=== PATIENT | male | born 1935 | race Native Hawaiian/Other Pacific Islander ===

== ENCOUNTER 2017-09-10 13:09 | Inpatient (IN) | payer MEDICARE, OTHER ==
[2017-09-10 13:09] VITALS: BMI 18.5
--- NOTE | 2017-09-10 13:36 | ED PDOC ---
HPI: Abdomen Time Seen by Provider: 09/10/17 13:35 Chief Complaint (Nursing): Abdominal Pain Chief Complaint (Provider): abd pain History Per: Patient Additional Complaint(s): 82-year-old male presents to emergency department with diffuse abdominal pain and vomiting that started yesterday. No fever or chills, no diarrhea, no chest pain, shortness of breath or dyspnea on exertion. PMD: Dr. Giang Past Medical History Reviewed: Historical Data, Nursing Documentation, Vital Signs Vital Signs: Last Vital Signs Temp 98.3 F 09/10/17 13:14 Pulse 83 09/10/17 13:14 Resp 16 09/10/17 13:14 BP 117/63 09/10/17 13:14 Pulse Ox 97 09/10/17 15:44 - Medical History PMH: HTN, Hypercholesterolemia, Osteoporosis - Surgical History Surgical History: Cholecystectomy, Endoscopy - Family History Family History: States: No Known Family Hx - Living Arrangements Living Arrangements: With Family - Social History Current smoker - smoking cessation education provided: No Alcohol: None Drugs: Denies - Home Medications Home Medications: Ambulatory Orders Medication Instructions Recorded Alendronate [Fosamax] 70 mg PO QWK 07/17/17 Finasteride [Proscar] 5 mg PO DAILY 07/17/17 Losartan Potassium 25 mg PO DAILY 07/17/17 Omeprazole 40 mg PO DAILY 07/17/17 Tamsulosin [Flomax] 0.4 mg PO HS 07/17/17 Ergocalciferol (Vitamin D2) 50,000 unit PO QWK 09/10/17 [Vitamin D2] Folic Acid [Folic Acid] 1 mg PO DAILY 09/10/17 Ranitidine HCl [Zantac] 150 mg PO BID 09/10/17 Sertraline [Zoloft] 100 mg PO DAILY 09/10/17 Simvastatin [Zocor] 20 mg PO HS 09/10/17 - Allergies Allergies/Adverse Reactions: Allergies Allergy/AdvReac Type Severity Reaction Status Date / Time No Known Allergies Allergy Verified 09/10/17 13:14 Review of Systems ROS Statement: Except As Marked, All Systems Reviewed And Found Negative Constitutional: Negative for: Fever, Chills Cardiovascular: Negative for: Chest Pain, Palpitations Respiratory: Negative for: Cough, Shortness of Breath Gastrointestinal: Positive for: Nausea, Vomiting, Abdominal Pain. Negative for : Diarrhea, Constipation Genitourinary Male: Negative for: Dysuria Physical Exam - Reviewed Nursing Documentation Reviewed: Yes Vital Signs Reviewed: Yes - Physical Exam Appears: Positive for: Well, Non-toxic, No Acute Distress Skin: Negative for: Rash Eye Exam: Positive for: Normal appearance Cardiovascular/Chest: Positive for: Regular Rate, Rhythm Respiratory: Positive for: Normal Breath Sounds. Negative for: Wheezing, Respiratory Distress Gastrointestinal/Abdominal: Positive for: Other (Diffuse tenderness in all 4 quadrants, no distention, no rebound or guarding, normoactive bowel sounds in all 4 quadrants) Back: Negative for: L CVA Tenderness, R CVA Tenderness Extremity: Positive for: Normal ROM Neurologic/Psych: Positive for: Alert, Oriented - Laboratory Results Result Diagrams: 09/10/17 14:40 09/10/17 14:40 - ECG Interpretation Of ECG: Sinus tach 101, 1st degree AV block, LBBB - no old EKG available for comparison , family confirms history of LBBB. O2 Sat by Pulse Oximetry: 97 Pulse Ox Interpretation: Normal - Other Rad CXR X-Ray: Interpreted by Me, Viewed By Me X-Ray Interpretation: no acute finding, no interval change CT abd and pelvis with IV contrast X-Ray: Read By Radiologist X-Ray Interpretation: see below Medical Decision Making Medical Decision Makin-year-old with vomiting and abdominal pain Plan: EKG CXR CT abd and pelvis with IV contrast CBC CMP Lipase Trop Urine dip CT: FINDINGS: LOWER THORAX: Nodular opacity seen in the posterior lower lung zones with apparent underlying paraseptal emphysematous changes and/or honeycombing/ fibrosis and possibly some areas of bronchiectasis. Underlying centrilobular/panlobular and bullous emphysematous changes are present. The calcified granuloma left posterior sulcus. There is a small hiatal hernia. Heart size is enlarged. No significant pericardial effusion. LIVER: Liver exhibits normal size measuring nearly 15 cm in CC dimension. Mild diffuse fatty hepatic infiltration.. Mild to moderate intrahepatic biliary ductal dilatation. Portal and splenic veins are opacified. No obvious hepatic mass or collection. GALLBLADDER AND BILE DUCTS: Gallbladder is markedly distended. There is dilatation of the common bile duct. Duodenal diverticulum is present at the level of the ampulla of Vater. Questionable wall thickening of the duodenum. Consider followup ERCP if further evaluation is required. PANCREAS : Pancreatic duct is again seen to be dilated/ectatic. No obvious pancreatic mass or collection. SPLEEN: Spleen exhibits normal size and attenuation pattern without mass collection or calcification. ADRENALS: There are no adrenal lesions seen. KIDNEYS AND URETERS: Kidneys demonstrate symmetric nephrograms. No evidence of nephrolithiasis or hydronephrosis. Multiple varying sized low predominately small low-attenuation foci seen both kidneys. Most of these foci too small to characterize however the largest focus in the mid anterolateral aspect midpole left kidney exhibits Hounsfield units in the mid 30s not compatible with a simple cyst. This could represent a hyperdense cyst however other pathology not excluded. VASCULATURE: Unremarkable. No aortic aneurysm. Abdominal aorta and iliac arteries demonstrate mild atherosclerotic plaque. BOWEL: Evaluation of the bowel is somewhat limited due to the lack of oral contrast material. Stomach is under distended and therefore difficult to evaluate. Wall thickening likely due to underdistention. Gastritis not excluded. The remaining visualized loops of small bowel otherwise exhibit normal contour and caliber. No evidence acute mechanical small bowel obstruction. Diverticula diverticulosis of. No definitive radiographic evidence of acute diverticulitis. APPENDIX: Appendix is not seen with certainty on this study. No obvious periappendiceal inflammatory changes however clinical correlation recommended with physical exam and history as the possibility of an early acute appendicitis cannot be ruled out on this exam. PERITONEUM: Unremarkable. No free fluid. No free air. LYMPH NODES: Few small nonspecific mesenteric lymph nodes are seen in right mid and lower abdomen. BLADDER: Urinary bladder is incompletely distended which presumably accounts for slight thick-walled appearance. Possibility of a cystitis not excluded. REPRODUCTIVE: Enlarged heterogeneous prostate gland measuring approximately 4.3 cm in transverse dimension. BONES: Minor multilevel degenerative spondylosis of the lumbar spine. No evidence of acute compression fractures no retropulsed fragments. OTHER FINDINGS: None. IMPRESSION: There is marked dilatation of the gallbladder however no obvious intraluminal gallbladder calculi. . Dilatation of the common bile duct and intrahepatic biliary ductal dilatation with no definitive evidence of choledocholithiasis. . There is also dilated ectatic appearing pancreatic duct. . There is a periampullary duodenal diverticulum with questionable wall thickening. Consider followup ERCP the mild fatty hepatic infiltration. Appendix is not seen with any certainty on this exam. Clinical correlation recommended. Diverticulosis without definitive radiographic evidence of acute diverticulitis. Centrilobular, panlobular and paraseptal emphysematous changes with apparent on bibasilar honeycombing/ fibrosis. See above discussion for additional details and findings. PMD is Dr. Giang, case was d/w with him and he states to admit patient to hospitalist service. Dr. Nunez to admit patient. Dr. Nunez to speak with GI for consult. Patient and family members are aware of admission and agree. Initial doses of IV cipro and flagyl were ordered. Disposition - Clinical Impression Clinical Impression: Acalculous cholecystitis, Pancreatitis - Patient ED Disposition Is Patient to be Admitted: Yes - Disposition Disposition Time: 18:02 Condition: FAIR Forms: [employer] (Faroese) - Pt Status Changed To: Hospital Disposition Of: Inpatient - Admit Certification Admit to Inpatient:: After my assessment, the patient will require hospitalization for at least two midnights. This is because of the severity of symptoms shown, intensity of services needed, and/or the medical risk in this patient being treated as an outpatient. Results - Lab Results Lab Results: 09/10/17 09/10/17 14:40 14:40 WBC 12.6 H RBC 4.87 Hgb 14.6 Hct 43.5 MCV 89.2 MCH 29.9 MCHC 33.5 RDW 14.1 Plt Count 256 MPV 7.6 Neut % (Auto) 91.1 H Lymph % (Auto) 4.2 L Letcher % (Auto) 4.4 Eos % (Auto) 0.2 Baso % (Auto) 0.1 Neut # (Auto) 11.5 H Lymph # (Auto) 0.5 L Letcher # (Auto) 0.6 Eos # (Auto) 0.0 Baso # (Auto) 0.0 Neutrophils % (Manual) 91 H Band Neutrophils % 2 Lymphocytes % (Manual) 4 L Monocytes % (Manual) 3 Platelet Estimate Normal RBC Morphology Normal Sodium 142 Potassium 4.5 Chloride 103 Carbon Dioxide 22 Anion Gap 22 H BUN 17 Creatinine 1.0 Est GFR ( Amer) > 60 Est GFR (Non-Af Amer) > 60 Random Glucose 117 H Calcium 9.4 Total Bilirubin 3.0 H AST 32 ALT 26 Alkaline Phosphatase 107 Troponin I < 0.0120 Total Protein 7.7 Albumin 4.2 Globulin 3.5 Albumin/Globulin Ratio 1.2 Lipase 5781 H
[2017-09-10] MEDS ORDERED: Sodium Chloride 0.9% 1,000 ML IV STA (14:21)
[2017-09-10 14:47] LABS: BASO % 0.1 % (0.0-2.0); EOS % 0.2 % (0.0-4.0); HEMOGLOBIN 14.6 g/dL (12.0-18.0); LYMPH # 0.5 K/uL (1.0-4.3); LYMPH % 4.2 % (20.0-40.0); MEAN CELL VOLUME 89.2 fl (80.0-94.0); MEAN CORPUSCULAR HEMOGLOBIN 29.9 pg (27.0-31.0); MEAN CORPUSCULAR HGB CONC 33.5 g/dL (33.0-37.0); MEAN PLATELET VOLUME 7.6 fl (7.2-11.7); MONO # 0.6 K/uL (0.0-0.8); MONO % 4.4 % (0.0-10.0); NEUT # 11.5 K/uL (1.8-7.0); NEUT % 91.1 % (50.0-75.0); PLATELET COUNT 256 K/uL (130-400); RBC 4.87 Mil/uL (4.40-5.90); RED CELL DISTRIBUTION WIDTH 14.1 % (11.5-14.5); WHITE BLOOD COUNT 12.6 K/uL (4.8-10.8)
[2017-09-10 14:57] LABS: ALB/GLOB RATIO 1.2 (1.0-2.1); ALBUMIN 4.2 g/dL (3.5-5.0); ALT/SGPT 26 U/L (21-72); AST/SGOT 32 U/L (17-59); BLOOD UREA NITROGEN 17 mg/dl (9-20); CALCIUM 9.4 mg/dL (8.4-10.2); GFR AFRICAN-AMERICAN > 60; GFR NON-AFRICAN AMERICAN > 60
[2017-09-10 15:23] LABS: BANDS 2 % (0-2); LYMPHOCYTE 4 % (20-50); MONOCYTE 3 % (0-10); NEUTROPHIL 91 % (42-75); PLATELET ESTIMATE NORMAL (NORMAL); TOTAL CELLS COUNTED 100
[2017-09-10 15:35] LABS: LIPASE 5781 U/L (23-300)
--- NOTE | 2017-09-10 15:49 | RAD ---
HISTORY: clearance COMPARISON: Comparison made with chest radiograph 01/02/2014. Comparison also made with CT scan chest dated 01/18/2011. FINDINGS: LUNGS: Lung ewing remain hyperinflated with flattened diaphragms consistent with centrilobular -panlobular and bullous emphysematous changes. Bibasilar atelectasis and or scarring changes. PLEURA: No significant pleural effusion identified, no pneumothorax apparent. CARDIOVASCULAR: Normal. OSSEOUS STRUCTURES: No significant abnormalities. VISUALIZED UPPER ABDOMEN: Normal. OTHER FINDINGS: None. IMPRESSION: Lung ewing remain hyperinflated with flattened diaphragms consistent with centrilobular -panlobular and bullous emphysematous changes. Bibasilar atelectasis and or scarring changes.
[2017-09-10] MEDS ORDERED: Sodium Chloride 0.9% 100 ML ONE (15:53)
[2017-09-10] MEDS ORDERED: Iohexol 300 100 ML IJ ONE (15:53)
--- NOTE | 2017-09-10 17:24 | CT ---
PROCEDURE: CT scan abdomen and pelvis dated 09/10/2017 CT Abdomen and Pelvis with contrast HISTORY: Abdominal pain, vomiting COMPARISON: Correlation made with prior MRI of the abdomen -MRCP dated 01/04/2014. . . TECHNIQUE: Contrast dose: 90 cc Omnipaque 300 Radiation dose: Total exam DLP = 260.18 mGy-cm. This CT exam was performed using one or more of the following dose reduction techniques: Automated exposure control, adjustment of the mA and/or kV according to patient size, and/or use of iterative reconstruction technique. FINDINGS: LOWER THORAX: Nodular opacity seen in the posterior lower lung zones with apparent underlying paraseptal emphysematous changes and/or honeycombing/ fibrosis and possibly some areas of bronchiectasis. Underlying centrilobular/panlobular and bullous emphysematous changes are present. The calcified granuloma left posterior sulcus. There is a small hiatal hernia. Heart size is enlarged. No significant pericardial effusion. LIVER: Liver exhibits normal size measuring nearly 15 cm in CC dimension. Mild diffuse fatty hepatic infiltration.. Mild to moderate intrahepatic biliary ductal dilatation. Portal and splenic veins are opacified. No obvious hepatic mass or collection. GALLBLADDER AND BILE DUCTS: Gallbladder is markedly distended. There is dilatation of the common bile duct. Duodenal diverticulum is present at the level of the ampulla of Vater. Questionable wall thickening of the duodenum. Consider followup ERCP if further evaluation is required. PANCREAS: Pancreatic duct is again seen to be dilated/ectatic. No obvious pancreatic mass or collection. SPLEEN: Spleen exhibits normal size and attenuation pattern without mass collection or calcification. . ADRENALS: There are no adrenal lesions seen. KIDNEYS AND URETERS: Kidneys demonstrate symmetric nephrograms. No evidence of nephrolithiasis or hydronephrosis. Multiple varying sized low predominately small low-attenuation foci seen both kidneys. Most of these foci too small to characterize however the largest focus in the mid anterolateral aspect midpole left kidney exhibits Hounsfield units in the mid 30s not compatible with a simple cyst. This could represent a hyperdense cyst however other pathology not excluded. . VASCULATURE: Unremarkable. No aortic aneurysm. Abdominal aorta and iliac arteries demonstrate mild atherosclerotic plaque. BOWEL: Evaluation of the bowel is somewhat limited due to the lack of oral contrast material. Stomach is under distended and therefore difficult to evaluate. Wall thickening likely due to underdistention. Gastritis not excluded. The remaining visualized loops of small bowel otherwise exhibit normal contour and caliber. No evidence acute mechanical small bowel obstruction. Diverticula diverticulosis of. No definitive radiographic evidence of acute diverticulitis. APPENDIX: Appendix is not seen with certainty on this study. No obvious periappendiceal inflammatory changes however clinical correlation recommended with physical exam and history as the possibility of an early acute appendicitis cannot be ruled out on this exam. PERITONEUM: Unremarkable. No free fluid. No free air. LYMPH NODES: Few small nonspecific mesenteric lymph nodes are seen in right mid and lower abdomen. BLADDER: Urinary bladder is incompletely distended which presumably accounts for slight thick-walled appearance. Possibility of a cystitis not excluded. REPRODUCTIVE: Enlarged heterogeneous prostate gland measuring approximately 4.3 cm in transverse dimension. BONES: Minor multilevel degenerative spondylosis of the lumbar spine. No evidence of acute compression fractures no retropulsed fragments. OTHER FINDINGS: None. IMPRESSION: There is marked dilatation of the gallbladder however no obvious intraluminal gallbladder calculi. . Dilatation of the common bile duct and intrahepatic biliary ductal dilatation with no definitive evidence of choledocholithiasis. . There is also dilated ectatic appearing pancreatic duct. . There is a periampullary duodenal diverticulum with questionable wall thickening. Consider followup ERCP the mild fatty hepatic infiltration. Appendix is not seen with any certainty on this exam. Clinical correlation recommended. Diverticulosis without definitive radiographic evidence of acute diverticulitis. Centrilobular, panlobular and paraseptal emphysematous changes with apparent on bibasilar honeycombing/ fibrosis. See above discussion for additional details and findings.
[2017-09-10] MEDS ORDERED: Ciprofloxacin 400mg/200ml D5W 400 MG/200 ML BAG IVPB STA (18:18)
[2017-09-10] MEDS ORDERED: metroNIDAZOLE 500mg/100ml NS 100 ML IVPB STA (18:18)
[2017-09-10] MEDS ORDERED: Morphine 4 MG/ML VIAL IVP PRN (18:38)
--- NOTE | 2017-09-10 18:59 | CP.PCM.HP ---
History of Present Illness - History of Present Illness History of Present Illness: 82 yo male with history of BPH and Gastric Ulcer with partial gastrectomy 30 yrs ago presented with upper abdominal pain since 2 days not associated with nausea or vomiting. Pain was persistent and non-radiating. Denied fever or chills but noted to be febrile while in the ER. Denied chest pain or SOB. Present on Admission - Present on Admission Any Indicators Present on Admission: No History of DVT/PE: No History of Uncontrolled Diabetes: No Urinary Catheter: No Decubitus Ulcer Present: No Review of Systems - Review of Systems All systems: reviewed and no additional remarkable complaints except (aside from those mentioned above, 14 point system review were negative by me) Past Patient History - Tetanus Immunizations Tetanus Immunization: Unknown - Past Medical History & Family History Past Medical History?: Yes - Past Social History Smoking Status: Former Smoker Alcohol: None Drugs: Denies Home Situation {Lives}: With Family - CARDIAC Hx Hypercholesterolemia: Yes Hx Hypertension: Yes - PULMONARY Hx Respiratory Disorders: No - NEUROLOGICAL Hx Neurological Disorder: No - HEENT Hx HEENT Problems: Yes - RENAL Hx Chronic Kidney Disease: No - ENDOCRINE/METABOLIC Hx Endocrine Disorders: No - HEMATOLOGICAL/ONCOLOGICAL Hx Blood Disorders: No - INTEGUMENTARY Hx Dermatological Problems: No - MUSCULOSKELETAL/RHEUMATOLOGICAL Hx Osteoporosis: Yes - GASTROINTESTINAL Hx Gastrointestinal Disorders: Yes Hx Gastroesophageal Reflux: Yes Hx Ulcer: Yes (gastric ulcer 30 yrs ago) - GENITOURINARY/GYNECOLOGICAL Hx Genitourinary Disorders: Yes Hx Prostate Problems: Yes (ENLARGED) - PSYCHIATRIC Hx Psychophysiologic Disorder: No Hx Substance Use: No - SURGICAL HISTORY Hx Cholecystectomy: Yes Other/Comment: partial gastrectomy 30 yrs ago secondary to gastric ulcer - ANESTHESIA Hx Anesthesia: Yes Hx Anesthesia Reactions: No Meds Allergies/Adverse Reactions: Allergies Allergy/AdvReac Type Severity Reaction Status Date / Time No Known Allergies Allergy Verified 09/10/17 13:14 Physical Exam - Constitutional Appears: No Acute Distress - Head Exam Head Exam: ATRAUMATIC - Eye Exam Eye Exam: absent: Scleral icterus - ENT Exam ENT Exam: Mucous Membranes Moist - Neck Exam Neck exam: Negative for: Meningismus - Respiratory Exam Respiratory Exam: absent: Rhonchi, Wheezes, Respiratory Distress - Cardiovascular Exam Cardiovascular Exam: REGULAR RHYTHM, +S1, +S2 - GI/Abdominal Exam GI & Abdominal Exam: Soft. absent: Tenderness - Rectal Exam Rectal Exam: Deferred - Extremities Exam Extremities exam: Negative for: calf tenderness, pedal edema - Back Exam Back exam: absent: tenderness - Neurological Exam Neurological exam: Alert, Oriented x3 - Psychiatric Exam Psychiatric exam: Normal Affect - Skin Skin Exam: Dry, Intact Results - Vital Signs Recent Vital Signs: Last Vital Signs Temp 100.4 F H 09/10/17 18:48 Pulse 98 H 09/10/17 18:48 Resp 18 09/10/17 18:48 BP 123/53 L 09/10/17 18:48 Pulse Ox 97 09/10/17 18:53 - Labs Result Diagrams: 09/10/17 14:40 09/10/17 14:40 Labs: Laboratory Results - last 24 hr 09/10/17 09/10/17 14:40 14:40 WBC 12.6 H RBC 4.87 Hgb 14.6 Hct 43.5 MCV 89.2 MCH 29.9 MCHC 33.5 RDW 14.1 Plt Count 256 MPV 7.6 Neut % (Auto) 91.1 H Lymph % (Auto) 4.2 L Evangeline % (Auto) 4.4 Eos % (Auto) 0.2 Baso % (Auto) 0.1 Neut # (Auto) 11.5 H Lymph # (Auto) 0.5 L Evangeline # (Auto) 0.6 Eos # (Auto) 0.0 Baso # (Auto) 0.0 Neutrophils % (Manual) 91 H Band Neutrophils % 2 Lymphocytes % (Manual) 4 L Monocytes % (Manual) 3 Platelet Estimate Normal RBC Morphology Normal Sodium 142 Potassium 4.5 Chloride 103 Carbon Dioxide 22 Anion Gap 22 H BUN 17 Creatinine 1.0 Est GFR ( Amer) > 60 Est GFR (Non-Af Amer) > 60 Random Glucose 117 H Calcium 9.4 Total Bilirubin 3.0 H AST 32 ALT 26 Alkaline Phosphatase 107 Troponin I < 0.0120 Total Protein 7.7 Albumin 4.2 Globulin 3.5 Albumin/Globulin Ratio 1.2 Lipase 5781 H Assessment & Plan (1) Acalculous cholecystitis Status: Acute Comment: ERCP. GI consult with Dr Mayfield. blood culture x 2. continue Cipro and Flagyl. Morphine 2mg IV q 6 hrs prn for pain (2) HTN (hypertension) Status: Chronic Comment: BP stable. PO meds on hold (3) BPH (benign prostatic hyperplasia) Status: Chronic Comment: stable
[2017-09-10 19:12] LABS: SQUAMOUS EPITHIAL 2 /hpf (0-5); URINE AMORPHOUS SEDIMENT RARE /ul (<OCC); URINE BILIRUBIN NEGATIVE (NEGATIVE); URINE BLOOD SMALL (NEGATIVE); URINE CLARITY CLOUDY (Clear); URINE COLOR AMBER (YELLOW); URINE GLUCOSE (UA) NEG (Normal); URINE LEUKOCYTE ESTERASE NEG Leu/uL (Negative); URINE NITRATE NEGATIVE (NEGATIVE); URINE PROTEIN 100 mg/dL (NEGATIVE)
[2017-09-10] MEDS: Lactated Ringer's 1,000 ML IV SCH (19:25)
[2017-09-10] MEDS: Piperacillin/Tazobact 3.375 GM in Sodium Chloride 0.9% 100 ML IVPB SCH (23:10)
[2017-09-11] MEDS: metroNIDAZOLE 500mg/100ml NS 100 ML IVPB SCH ×3 (00:56→16:49)
[2017-09-11] MEDS: Piperacillin/Tazobact 3.375 GM in Sodium Chloride 0.9% 100 ML IVPB SCH ×4 (04:27→21:47)
--- NOTE | 2017-09-11 06:37 | PQF GENQUE ---
This form is a permanent part of the medical record 09/11/17 Dr. Nunez, Cholecystitis and Pancreatitis is documented in the Medical Record. Please specify the acuity of these conditions. Admitted with abdominal pain , nausea and vomiting. ER: Acalculous Cholecystitis, Pancreatitis. H&P: Acalculous Cholecystitis CT: Marked dilatation of the gallbladder, CBD, intrahepatic biliary ductal dilatation and dilated ectatic pancreatic duct. Lipase 5781, WBC 12.6 L shift, Temp 100.4 Treated with IVF and IVAB. Clarification of your documentation is requested to better reflect the severity of illness and intensity of treatment of your patient. Indicators present PHYSICIAN'S RESPONSE [x] Acute [] Chronic [] Acute and chronic [] Acute on chronic [] Other (please specify in the medical record) [] Clinically unable to further specify [] Unknown Based on your medical judgment of the clinical indicators outlined above please clarify the following: [x] Practitioner response [] If unable to determine, please check the box, sign and date. Present On Admission (POA) Indicator: [x] Present at the time of admission [] Not present at the time of admission [] Clinically Undetermined In responding to this query, please exercise your independent professional judgment. The fact that a question is asked does not imply that any particular answer is desired or expected. Thank you for your clarification on this documentation. If you have any questions please call:ext [phone] * Thank you, Sherly Bales RN [facility]
[2017-09-11] MEDS: Lactated Ringer's 1,000 ML IV SCH ×3 (06:38→16:50)
[2017-09-11 06:54] LABS: BASO % 0.3 % (0.0-2.0); EOS % 0.1 % (0.0-4.0); HEMOGLOBIN 12.1 g/dL (12.0-18.0); LYMPH # 0.3 K/uL (1.0-4.3); LYMPH % 2.6 % (20.0-40.0); MEAN CELL VOLUME 87.8 fl (80.0-94.0); MEAN CORPUSCULAR HEMOGLOBIN 30.1 pg (27.0-31.0); MEAN CORPUSCULAR HGB CONC 34.3 g/dL (33.0-37.0); MEAN PLATELET VOLUME 7.7 fl (7.2-11.7); MONO # 0.7 K/uL (0.0-0.8); MONO % 6.1 % (0.0-10.0); NEUT # 10.1 K/uL (1.8-7.0); NEUT % 90.9 % (50.0-75.0); PLATELET COUNT 166 K/uL (130-400); RBC 4.03 Mil/uL (4.40-5.90); RED CELL DISTRIBUTION WIDTH 13.7 % (11.5-14.5); WHITE BLOOD COUNT 11.1 K/uL (4.8-10.8)
[2017-09-11 06:58] LABS: BLOOD UREA NITROGEN 18 mg/dl (9-20); GFR AFRICAN-AMERICAN > 60; GFR NON-AFRICAN AMERICAN > 60
[2017-09-11 07:14] LABS: CALCIUM 7.8 mg/dL (8.4-10.2)
[2017-09-11] MEDS: Enoxaparin 40 mg Syringe SC SCH (08:32)
[2017-09-11 09:40] LABS: BANDS 2 % (0-2); BASOPHIL 1 % (0-2); EOSINOPHIL 1 % (0-7); LYMPHOCYTE 5 % (20-50); MONOCYTE 8 % (0-10); NEUTROPHIL 83 % (42-75); TOTAL CELLS COUNTED 100
[2017-09-11 09:41] LABS: PLATELET ESTIMATE NORMAL (NORMAL); TOXIC GRANULATION PRESENT
--- NOTE | 2017-09-11 11:50 | CARD ---
APPROVED REPORT EKG Measurement Heart [id number] <Conclusion> Sinus tachycardia with 1st degree AV block Left axis deviation Left bundle branch block Abnormal ECG
--- NOTE | 2017-09-11 16:30 | CP.PCM.PN ---
Subjective - Date & Time of Evaluation Date of Evaluation: 09/11/17 Time of Evaluation: 16:00 - Subjective Subjective: Patient seen and examined. Complaining of hunger but abdominal pain had gone Objective - Vital Signs/Intake and Output Vital Signs (last 24 hours): Temp Pulse Resp BP Pulse Ox 101.7 F H 77 20 129/58 L 95 09/11/17 16:08 09/11/17 16:08 09/11/17 16:08 09/11/17 16:08 09/11/17 16:08 - Medications Medications: Current Medications Acetaminophen (Tylenol 650 Mg Supp) [address] Q6 PRN PRN Reason: Fever >100.4 F Last Admin: 09/11/17 15:41 Dose: 650 mg Enoxaparin Sodium (Lovenox) 40 mg SC DAILY SARATH PRN Reason: Protocol Last Admin: 09/11/17 08:32 Dose: 40 mg Lactated Ringer's (Lactated Ringer's) 1,000 mls @ 100 mls/hr IV .Q10H [facility] Last Admin: 09/11/17 09:35 Dose: 100 mls/hr Piperacillin Sod/Tazobactam (Sod 3.375 gm/ Sodium Chloride) 100 mls @ 100 mls/ hr IVPB Q6 SARATH PRN Reason: Protocol Last Admin: 09/11/17 09:35 Dose: 100 mls/hr Metronidazole (Flagyl 500mg/100ml Ns) 100 mls @ 100 mls/hr IVPB Q8 SARATH PRN Reason: Protocol Last Admin: 09/11/17 08:31 Dose: 100 mls/hr Potassium Chloride 10 meq/ (Sodium Chloride) 105 mls @ 105 mls/hr IV Q1 [facility] Stop: 09/11/17 18:59 Morphine Sulfate (Morphine) 2 mg IVP Q6 PRN PRN Reason: Pain, moderate (4-7) - Labs Labs: 09/11/17 06:10 09/11/17 06:10 - Constitutional Appears: No Acute Distress - Head Exam Head Exam: ATRAUMATIC - Eye Exam Eye Exam: absent: Scleral icterus - ENT Exam ENT Exam: Mucous Membranes Moist - Neck Exam Neck Exam: absent: Meningismus - Respiratory Exam Respiratory Exam: absent: Rhonchi, Wheezes, Respiratory Distress - Cardiovascular Exam Cardiovascular Exam: REGULAR RHYTHM, +S1, +S2 - GI/Abdominal Exam GI & Abdominal Exam: Soft. absent: Tenderness - Rectal Exam Rectal Exam: Deferred - Extremities Exam Extremities Exam: absent: Calf Tenderness, Pedal Edema - Back Exam Back Exam: absent: tenderness - Neurological Exam Neurological Exam: Alert, Oriented x3 - Psychiatric Exam Psychiatric exam: Normal Affect - Skin Skin Exam: Dry, Intact Assessment and Plan - Assessment and Plan (Free Text) Assessment: 82 yo male with history of BPH and Gastric Ulcer with partial gastrectomy 30 yrs ago presented with persistent non-radiating upper abdominal pain for 2 days. 1. Pancreatitis pain was resolved but now complained of hunger since placed on NPO Lipase went down from [address] scan of abdomen: dilated gallbladder, CBD and intrahepatic biliary duct; dilated pancreatic duct with periampullary duodenal diverticulum with wall thickening for MRCP tomorrow since it is less invasive compared to ERCP continue Zosyn and Flagyl follow up blood culture continue to have daily fever repeat CMP and CBC in am 2. HTN BP stable without medication 3. BPH stable
[2017-09-11 18:41] LABS: ALB/GLOB RATIO 0.9 (1.0-2.1); ALBUMIN 2.6 g/dL (3.5-5.0); BILIRUBIN,DIRECT 5.1 mg/ml (0.0-0.4)
[2017-09-12] MEDS: metroNIDAZOLE 500mg/100ml NS 100 ML IVPB SCH ×3 (00:22→16:14)
[2017-09-12] MEDS: Lactated Ringer's 1,000 ML IV SCH ×4 (03:49→21:15)
[2017-09-12] MEDS: Piperacillin/Tazobact 3.375 GM in Sodium Chloride 0.9% 100 ML IVPB SCH ×4 (03:49→21:18)
[2017-09-12 06:31] LABS: BASO % 0.5 % (0.0-2.0); EOS # 0.1 K/uL (0.0-0.7); EOS % 1.4 % (0.0-4.0); HEMOGLOBIN 12.7 g/dL (12.0-18.0); LYMPH # 0.4 K/uL (1.0-4.3); LYMPH % 6.7 % (20.0-40.0); MEAN CELL VOLUME 89.4 fl (80.0-94.0); MEAN CORPUSCULAR HEMOGLOBIN 29.7 pg (27.0-31.0); MEAN CORPUSCULAR HGB CONC 33.2 g/dL (33.0-37.0); MEAN PLATELET VOLUME 7.6 fl (7.2-11.7); MONO # 0.4 K/uL (0.0-0.8); MONO % 7.8 % (0.0-10.0); NEUT # 4.7 K/uL (1.8-7.0); NEUT % 83.6 % (50.0-75.0); NRBC % 0.1 % (0.0-0.0); RBC 4.27 Mil/uL (4.40-5.90); RED CELL DISTRIBUTION WIDTH 13.9 % (11.5-14.5); WHITE BLOOD COUNT 5.7 K/uL (4.8-10.8)
[2017-09-12 06:45] LABS: ALB/GLOB RATIO 0.9 (1.0-2.1); ALBUMIN 2.8 g/dL (3.5-5.0); ALT/SGPT 128 U/L (21-72); AST/SGOT 93 U/L (17-59); BLOOD UREA NITROGEN 15 mg/dl (9-20); CALCIUM 7.9 mg/dL (8.4-10.2); GFR AFRICAN-AMERICAN > 60; GFR NON-AFRICAN AMERICAN > 60
[2017-09-12] MEDS: Enoxaparin 40 mg Syringe SC SCH (08:40)
[2017-09-12 11:28] LABS: HEPATITIS B SURFACE AG Negative (NEGATIVE)
[2017-09-12 11:34] LABS: HEPATITIS A IGM NEGATIVE (NEGATIVE); HEPATITIS B CORE AB NEGATIVE (NEGATIVE)
[2017-09-12 11:45] LABS: HEPATITIS C ANTIBODY NEGATIVE (NEGATIVE)
[2017-09-12] MEDS ORDERED: Gadodiamide 287 MG/ML VIAL (15ML) IV ONE (13:15)
[2017-09-12] MEDS ORDERED: Sodium Chloride 0.9% 100 ML ONE (13:16)
--- NOTE | 2017-09-12 15:09 | CP.PCM.PN ---
Subjective - Date & Time of Evaluation Date of Evaluation: 09/12/17 Time of Evaluation: 10:30 - Subjective Subjective: No fever today abdominal pain resolved no N/V Pt is hungry and is asking for food denies CP no SOB Plan for MRCP today Daughter at bedside , pt speaks Mandarin only . Accdg to the daughter, they would like conservative nonsurgical managemet given pt's advance age. Objective - Vital Signs/Intake and Output Vital Signs (last 24 hours): Temp Pulse Resp BP Pulse Ox 98.2 F 85 18 149/57 L 95 09/12/17 07:41 09/12/17 07:41 09/12/17 07:41 09/12/17 07:41 09/12/17 07:41 - Medications Medications: Current Medications Acetaminophen (Tylenol 650 Mg Supp) 650 mg AL Q6 PRN PRN Reason: Fever >100.4 F Last Admin: 09/11/17 15:41 Dose: 650 mg Enoxaparin Sodium (Lovenox) 40 mg SC DAILY SARATH PRN Reason: Protocol Last Admin: 09/12/17 08:40 Dose: 40 mg Lactated Ringer's (Lactated Ringer's) 1,000 mls @ 100 mls/hr IV .Q10H [facility] Last Admin: 09/12/17 12:03 Dose: Not Given Piperacillin Sod/Tazobactam (Sod 3.375 gm/ Sodium Chloride) 100 mls @ 100 mls/ hr IVPB Q6 SARATH PRN Reason: Protocol Last Admin: 09/12/17 10:28 Dose: 100 mls/hr Metronidazole (Flagyl 500mg/100ml Ns) 100 mls @ 100 mls/hr IVPB Q8 SARATH PRN Reason: Protocol Last Admin: 09/12/17 08:40 Dose: 100 mls/hr Morphine Sulfate (Morphine) 2 mg IVP Q6 PRN PRN Reason: Pain, moderate (4-7) - Labs Labs: 09/12/17 06:00 09/12/17 06:00 - Constitutional Appears: Non-toxic, No Acute Distress - Head Exam Head Exam: NORMAL INSPECTION, NORMOCEPHALIC - Eye Exam Eye Exam: EOMI, Normal appearance Pupil Exam: NORMAL ACCOMODATION - ENT Exam ENT Exam: Mucous Membranes Dry, Normal External Ear Exam - Neck Exam Neck Exam: Full ROM. absent: Meningismus - Respiratory Exam Respiratory Exam: Rales (minimal basilar rales), NORMAL BREATHING PATTERN. absent: Respiratory Distress - Cardiovascular Exam Cardiovascular Exam: REGULAR RHYTHM, +S1, +S2 - GI/Abdominal Exam GI & Abdominal Exam: Soft, Normal Bowel Sounds. absent: Tenderness - Extremities Exam Extremities Exam: Normal Capillary Refill. absent: Calf Tenderness - Back Exam Back Exam: Full ROM. absent: CVA tenderness (L), CVA tenderness (R) - Neurological Exam Neurological Exam: Alert, Awake, CN II-XII Intact, Oriented x3 Neuro motor strength exam: Left Upper Extremity: 5, Right Upper Extremity: 5, Left Lower Extremity: 5, Right Lower Extremity: 5 - Psychiatric Exam Psychiatric exam: Normal Affect, Normal Mood - Skin Skin Exam: Dry, Normal Color, Warm Assessment and Plan (1) Cholecystitis Status: Acute (2) Pancreatitis Status: Acute (3) HTN (hypertension) Status: Chronic (4) Prostate enlargement Status: Chronic - Assessment and Plan (Free Text) Assessment: 82 y/o gent with hx of Cholelithiasis, HTN, Prostate Enlargement, Depression, cam ein bec of abd pain CT of the Abdomen: There is marked dilatation of the gallbladder however no obvious intraluminal gallbladder calculi. . Dilatation of the common bile duct and intrahepatic biliary ductal dilatation with no definitive evidence of choledocholithiasis. . There is also dilated ectatic appearing pancreatic duct. . There is a periampullary duodenal diverticulum with questionable wall thickening. Consider followup ERCP the mild fatty hepatic infiltration. Appendix is not seen with any certainty on this exam. Clinical correlation recommended. Diverticulosis without definitive radiographic evidence of acute diverticulitis. Centrilobular, panlobular and paraseptal emphysematous changes with apparent on bibasilar honeycombing/ fibrosis. Pt was admitted to Med Surg , GI Dr Mayfield consulted. He was kept NPO, IVF started, IV antibiotics started. MRCP : Mild pancreatic ductal dilatation. Mild dilatation of the common bile duct with associated mild intrahepatic biliary dilatation. No evidence of choledocholithiasis. Differential diagnosis would include ampullary stricture or neoplasm. No evidence of pancreatitis. Possible diverticulum of the gastric antrum. No evidence of duodenal diverticulum. (1) Fever with CBD , Intrahepatic and Pancreatitic Duct Dilatation Cholecystitis Status: Acute no stone noted in CBD cont IV Zosyn IVF hydration LFTs abnormal with markedly elevated Bilirubin GI consulted- discussed case with Dr Mayfield, rec MRCP Family would like conservative mgt (2) Pancreatitis Status: Acute elevated Lipase ? sec to biliary obst IV hydration Lipase trending down (4) HTN (hypertension) Status: Chronic restart Losartan (5) Prostate enlargement Status: Chronic restart Flomax and Proscar DVT proph : Lovenox
--- NOTE | 2017-09-12 16:30 | MRI ---
PROCEDURE: Magnetic Resonance Cholangiopancreatography HISTORY: COMPARISON: None available. TECHNIQUE: Multiplanar, multisequence MR images of the abdomen were obtained, including heavily T2 weighted MRCP images of the biliary system. Rotating maximum intensity projection images of the biliary system were generated. FINDINGS: MRCP: There is dilatation of the common bile duct to a caliber approximately 10 mm. This is associated with mild intrahepatic biliary ductal dilatation. This is abnormal, in the absence of prior cholecystectomy. There is no filling defect seen within the common bile duct. There is symmetric tapering of the distal common bile duct the level of the ampulla. There is mild dilatation of the pancreatic duct. LIVER: Normal size, contour and signal intensity. No mass. As noted above, mild intrahepatic biliary ductal dilatation. GALLBLADDER: Unremarkable. No mural thickening. No pericholecystic fluid/ edema. SPLEEN: Unremarkable. PANCREAS: Normal size. No peripancreatic fluid/ edema. Mild pancreatic ductal dilatation, diffusely. There is a questionable diverticulum of the gastric antrum. There is no evidence of a duodenal diverticulum. ADRENALS: Unremarkable. KIDNEYS: Small mid right renal cortical cyst. No hydronephrosis peer AORTA: No aneurysm. ASCITES: None. OTHER FINDINGS: None. IMPRESSION: Mild pancreatic ductal dilatation. Mild dilatation of the common bile duct with associated mild intrahepatic biliary dilatation. No evidence of choledocholithiasis. Differential diagnosis would include ampullary stricture or neoplasm. No evidence of pancreatitis. Possible diverticulum of the gastric antrum. No evidence of duodenal diverticulum.
[2017-09-12] MEDS ORDERED: Albuterol-Ipratrop 3 mg / 0.5 (3 ml) UD INH PRN (17:15)
[2017-09-13] MEDS: Lactated Ringer's 1,000 ML IV SCH (00:08)
[2017-09-13] MEDS: metroNIDAZOLE 500mg/100ml NS 100 ML IVPB SCH ×2 (00:08→10:23)
[2017-09-13] MEDS: Piperacillin/Tazobact 3.375 GM in Sodium Chloride 0.9% 100 ML IVPB SCH ×2 (04:20→10:24)
[2017-09-13 06:54] LABS: ALBUMIN 2.6 g/dL (3.5-5.0); ALT/SGPT 89 U/L (21-72); AST/SGOT 53 U/L (17-59); BLOOD UREA NITROGEN 9 mg/dl (9-20); CALCIUM 7.6 mg/dL (8.4-10.2); GFR AFRICAN-AMERICAN > 60; GFR NON-AFRICAN AMERICAN > 60; LIPASE 282 U/L (23-300)
[2017-09-13 08:18] VITALS: BP 162/72; PULSE 69; RESP 18; TEMP 98.2; O2SAT 96
[2017-09-13] MEDS ORDERED: Potassium Chloride 20 mEq ER Tab PO ONE (08:39)
[2017-09-13] MEDS: Enoxaparin 40 mg Syringe SC SCH (08:52)
--- NOTE | 2017-09-13 09:52 | CP.PCM.DIS ---
Provider - Provider Date of Admission: 09/10/17 18:03 Attending physician: Bandar Nunez MD Consults: Dr Mayfield Time Spent in preparation of Discharge (in minutes): 25 Diagnosis - Discharge Diagnosis (1) Cholecystitis Status: Acute Comment: has been afebrile for 2 days. WBC was back to normal range. LFTs have been trending down. abdominal pain resolved. continue Cipro and Flagyl for 5 days (2) Pancreatitis Status: Acute Comment: Lipase was back to normal range. abdominal pain resolved (3) HTN (hypertension) Status: Chronic Comment: BP stable. resume Losartan (4) Prostate enlargement Status: Chronic Comment: resume Flomax and Proscar Hospital Course - Lab Results Lab Results: Micro Results 09/11/17 17:53 Blood-Venous Blood Culture - Preliminary NO GROWTH AFTER 24 HOURS 09/11/17 17:43 Blood-Venous Blood Culture - Preliminary NO GROWTH AFTER 24 HOURS 09/10/17 19:00 Blood-Venous Blood Culture - Preliminary NO GROWTH AFTER 24 HOURS 09/10/17 19:00 Blood-Venous Blood Culture - Preliminary NO GROWTH AFTER 24 HOURS Most Recent Lab Values WBC 5.7 K/uL (4.8-10.8) 09/12/17 06:00 RBC 4.27 Mil/uL (4.40-5.90) L 09/12/17 06:00 Hgb 12.7 g/dL (12.0-18.0) 09/12/17 06:00 Hct 38.2 % (35.0-51.0) 09/12/17 06:00 MCV 89.4 fl (80.0-94.0) 09/12/17 06:00 MCH 29.7 pg (27.0-31.0) 09/12/17 06:00 MCHC 33.2 g/dL (33.0-37.0) 09/12/17 06:00 RDW 13.9 % (11.5-14.5) 09/12/17 06:00 Plt Count 162 K/uL (130-400) 09/12/17 06:00 MPV 7.6 fl (7.2-11.7) 09/12/17 06:00 Neut % (Auto) 83.6 % (50.0-75.0) H 09/12/17 06:00 Lymph % (Auto) 6.7 % (20.0-40.0) L 09/12/17 06:00 Bradley % (Auto) 7.8 % (0.0-10.0) 09/12/17 06:00 Eos % (Auto) 1.4 % (0.0-4.0) 09/12/17 06:00 Baso % (Auto) 0.5 % (0.0-2.0) 09/12/17 06:00 Neut # (Auto) 4.7 K/uL (1.8-7.0) 09/12/17 06:00 Lymph # (Auto) 0.4 K/uL (1.0-4.3) L 09/12/17 06:00 Bradley # (Auto) 0.4 K/uL (0.0-0.8) 09/12/17 06:00 Eos # (Auto) 0.1 K/uL (0.0-0.7) 09/12/17 06:00 Baso # (Auto) 0.0 K/uL (0.0-0.2) 09/12/17 06:00 Neutrophils % (Manual) 83 % (42-75) H 09/11/17 06:10 Band Neutrophils % 2 % (0-2) 09/11/17 06:10 Lymphocytes % (Manual) 5 % (20-50) L 09/11/17 06:10 Monocytes % (Manual) 8 % (0-10) 09/11/17 06:10 Eosinophils % (Manual) 1 % (0-7) 09/11/17 06:10 Basophils % (Manual) 1 % (0-2) 09/11/17 06:10 Toxic Granulation Present 09/11/17 06:10 Platelet Estimate Normal (NORMAL) 09/11/17 06:10 RBC Morphology Normal (NORMAL) 09/10/17 14:40 Sodium 138 mmol/l (132-148) 09/13/17 06:15 Potassium 3.5 MMOL/L (3.6-5.0) L 09/13/17 06:15 Chloride 106 mmol/L (98-107) 09/13/17 06:15 Carbon Dioxide 22 mmol/L (22-30) 09/13/17 06:15 Anion Gap 14 (10-20) 09/13/17 06:15 BUN 9 mg/dl (9-20) 09/13/17 06:15 Creatinine 0.9 mg/dl (0.8-1.5) 09/13/17 06:15 Est GFR ( Amer) > 60 09/13/17 06:15 Est GFR (Non-Af Amer) > 60 09/13/17 06:15 Random Glucose 96 mg/dL (75-110) 09/13/17 06:15 Calcium 7.6 mg/dL (8.4-10.2) L 09/13/17 06:15 Total Bilirubin 3.0 mg/dl (0.2-1.3) H 09/13/17 06:15 Direct Bilirubin 5.1 mg/ml (0.0-0.4) H 09/11/17 17:43 AST 53 U/L (17-59) 09/13/17 06:15 ALT 89 U/L (21-72) H D 09/13/17 06:15 Alkaline Phosphatase 384 U/L (38-126) H D 09/13/17 06:15 Troponin I < 0.0120 ng/mL (0.00-0.120) 09/10/17 14:40 Total Protein 5.2 G/DL (6.3-8.2) L 09/13/17 06:15 Albumin 2.6 g/dL (3.5-5.0) L 09/13/17 06:15 Globulin 2.7 gm/dL (2.2-3.9) 09/13/17 06:15 Albumin/Globulin Ratio 1.0 (1.0-2.1) 09/13/17 06:15 Lipase 282 U/L (23-300) 09/13/17 06:15 Urine Color [place] (YELLOW) 09/10/17 19:01 Urine Clarity Cloudy (Clear) 09/10/17 19:01 Urine pH 5.0 (5.0-8.0) 09/10/17 19:01 Ur Specific [place] 1.025 (1.003-1.030) 09/10/17 19:01 Urine Protein 100 mg/dL (NEGATIVE) 09/10/17 19:01 Urine Glucose (UA) Neg mg/dL (Normal) 09/10/17 19:01 Urine Ketones Negative mg/dL (NEGATIVE) 09/10/17 19:01 Urine Blood Small (NEGATIVE) 09/10/17 19:01 Urine Nitrate Negative (NEGATIVE) 09/10/17 19:01 Urine Bilirubin Negative (NEGATIVE) 09/10/17 19:01 Urine Urobilinogen 2.0 mg/dL (0.2-1.0) 09/10/17 19:01 Ur Leukocyte Esterase Neg Mary/uL (Negative) 09/10/17 19:01 Urine RBC (Auto) 10 /hpf (0-3) H 09/10/17 19:01 Urine Microscopic WBC 6 /hpf (0-5) H 09/10/17 19:01 Ur Squamous Epith Cells 2 /hpf (0-5) 09/10/17 19:01 Amorphous Sediment Rare /ul (<OCC) H 09/10/17 19:01 Hyaline Casts 3-5 /hpf (0-2) H 09/10/17 19:01 Hepatitis A IgM Ab Negative (NEGATIVE) 09/12/17 06:00 Hep Bs Antigen Negative (NEGATIVE) 09/12/17 06:00 Hep B Core IgM Ab Negative (NEGATIVE) 09/12/17 06:00 Hepatitis C Antibody Negative (NEGATIVE) 09/12/17 06:00 Influenza Typ A,B (EIA) Negative for flu a/b (NEGATIVE) 09/10/17 19:01 - Hospital Course Hospital Course: 82 yo male with history of BPH and Gastric Ulcer with partial gastrectomy 30 yrs ago presented with persistent non-radiating upper abdominal pain for 2 days. Patient was placed on NPO and started with IV hydration. Abdominal pain was relieved but continued to spike temperature until 2 days ago when fever did not recur. CT scan and MRCP showed dilated gallbladder, CBD and intrahepatic biliary duct but no stones were found. His LFTs and Lipase were initially elevated but have been trending down. Family requested only conservative management because of his age. Patient discharged in stable and improved condition. He will follow up with Dr Mayfield in 2 weeks. Discharge Exam - Head Exam Head Exam: NORMAL INSPECTION, NORMOCEPHALIC - Eye Exam Eye Exam: absent: Scleral icterus - ENT Exam ENT Exam: Mucous Membranes Moist - Respiratory Exam Respiratory Exam: NORMAL BREATHING PATTERN. absent: Wheezes, Respiratory Distress - Cardiovascular Exam Cardiovascular Exam: REGULAR RHYTHM, +S1, +S2 - GI/Abdominal Exam GI & Abdominal Exam: Soft. absent: Tenderness - Rectal Exam Rectal Exam: Deferred - Back Exam Back exam: absent: tenderness - Neurological Exam Neurological exam: Alert, Oriented x3 - Psychiatric Exam Psychiatric exam: Normal Affect - Skin Skin Exam: Dry, Intact Discharge Plan - Discharge Medications Prescriptions: Ciprofloxacin HCl [Cipro] 500 mg PO BID #10 tablet Metronidazole [Flagyl] 500 mg PO TID #15 tablet - Follow Up Plan Condition: FAIR Disposition: HOME/ ROUTINE Instructions: Pancreatitis (DC), Gallstones (DC) Referrals: Willard Mayfield MD, PhD [Staff Provider] - Jared Giang MD [Family Provider] -
--- NOTE | 2017-09-13 10:27 | CP.PCM.PN ---
Subjective - Date & Time of Evaluation Date of Evaluation: 09/13/17 Time of Evaluation: 10:26 - Subjective Subjective: doing well Objective - Vital Signs/Intake and Output Vital Signs (last 24 hours): Temp Pulse Resp BP Pulse Ox 98.2 F 69 18 162/72 H 96 09/13/17 08:18 09/13/17 08:51 09/13/17 08:18 09/13/17 08:51 09/13/17 08:18 - Medications Medications: Current Medications Acetaminophen (Tylenol 650 Mg Supp) 650 mg MA Q6 PRN PRN Reason: Fever >100.4 F Last Admin: 09/11/17 15:41 Dose: 650 mg Albuterol/Ipratropium (Duoneb 3 Mg/0.5 Mg (3 Ml) Ud) 3 ml INH RQ6 PRN PRN Reason: Shortness of Breath Enoxaparin Sodium (Lovenox) 40 mg SC DAILY SARATH PRN Reason: Protocol Last Admin: 09/13/17 08:52 Dose: 40 mg Finasteride (Proscar) 5 mg PO DAILY [facility] Last Admin: 09/13/17 08:52 Dose: 5 mg Folic Acid (Folic Acid) 1 mg PO DAILY [facility] Last Admin: 09/13/17 08:52 Dose: 1 mg Lactated Ringer's (Lactated Ringer's) 1,000 mls @ 100 mls/hr IV .Q10H [facility] Last Admin: 09/13/17 00:08 Dose: 100 mls/hr Piperacillin Sod/Tazobactam (Sod 3.375 gm/ Sodium Chloride) 100 mls @ 100 mls/ hr IVPB Q6 SARATH PRN Reason: Protocol Last Admin: 09/13/17 10:24 Dose: 100 mls/hr Metronidazole (Flagyl 500mg/100ml Ns) 100 mls @ 100 mls/hr IVPB Q8 SARATH PRN Reason: Protocol Last Admin: 09/13/17 10:23 Dose: 100 mls/hr Losartan Potassium (Cozaar) 25 mg PO DAILY [facility] Last Admin: 09/13/17 08:51 Dose: 25 mg Morphine Sulfate (Morphine) 2 mg IVP Q6 PRN PRN Reason: Pain, moderate (4-7) Sertraline HCl (Zoloft) 100 mg PO DAILY [facility] Last Admin: 03/02/18 08:52 Dose: 100 mg Tamsulosin HCl (Flomax) 0.4 mg PO HS SARATH Last Admin: 09/12/17 21:24 Dose: Not Given - Labs Labs: 09/12/17 06:00 09/13/17 06:15 - Head Exam Head Exam: NORMOCEPHALIC - Respiratory Exam Respiratory Exam: NORMAL BREATHING PATTERN - Cardiovascular Exam Cardiovascular Exam: REGULAR RHYTHM - GI/Abdominal Exam GI & Abdominal Exam: Soft, Normal Bowel Sounds Assessment and Plan - Assessment and Plan (Free Text) Assessment: 82 yo male with pancreatitis mrcp noted tolerating diet ppi for 2 months dc planning outpatient follow up
== END 2017-09-13 13:30 | disposition home or self-care (01) | DRG 444 ==
LOC: H.ER 13:09 → H.ERHOLD 18:03 → H.MEDSURG1 21:46
DX: K81.0 Acute cholecystitis (principal); K85.90 Acute pancreatitis without necrosis or infection, unspecified; R50.9 Fever, unspecified; E78.00 Pure hypercholesterolemia, unspecified; I10 Essential (primary) hypertension; K21.9 Gastro-esophageal reflux disease without esophagitis; K57.10 Diverticulosis of small intestine without perforation or abscess without bleeding; M81.0 Age-related osteoporosis without current pathological fracture; N40.0 Benign prostatic hyperplasia without lower urinary tract symptoms; Z87.11 Personal history of peptic ulcer disease; Z87.891 Personal history of nicotine dependence; Z90.3 Acquired absence of stomach [part of]; F32.9 Major depressive disorder, single episode, unspecified; Z79.899 Other long term (current) drug therapy; R94.5 Abnormal results of liver function studies